=== PATIENT | female | born 1960 | race Caucasian/White ===

== ENCOUNTER 2017-04-12 19:11 | Emergency (ER) | payer OTHER ==
[~2017-04-12] VITALS: Ht 142.2 cm; Wt 81.6 kg
[2017-04-12] MEDS ORDERED: ATORVASTATIN CA40 MG ORAL (19:42)
[2017-04-12 19:45] VITALS: BP 126/74
[2017-04-12] MEDS ORDERED: BACITRACIN-P28.35 GM TP (20:20)
--- NOTE | 2017-04-12 20:20 | Emergency Room Report ---
History of Present Illness General Chief Complaint: Skin Rash/Abscess Source: Patient Present Illness HPI 56 yo female patient presents to ER complaining of skin lesion on right arm for the past few weeks. Patient reports bump on arm became irritated. States she put iodine and hydrogen peroxide on it today; states why skin is slightly brown/yellow at site of bump. Denies pain. Denies bleeding, open wound, pus draining from site. States she has appointment with her primary care in April but wanted to be seen sooner; states she does not have a [employer] manager. Denies fever, chest pain, SOB, rash. Allergies: Coded Allergies: PERFUME (Verified Allergy, Unknown, 04/12/17) Patient History Past Medical History: see triage record Reviewed Nursing Documentation: PMH: Agreed, PSxH: Agreed Nursing Documentation-PMH Past Medical History: No History, Except For Review of Systems All Other Systems: negative except mentioned in HPI Physical Exam Vital Signs Date Time Temp Pulse Resp B/P (MAP) Pulse Ox O2 Delivery O2 Flow Rate FiO2 04/12/17 19:36 97.9 73 18 124/76 95 Room Air 97.9 Sp02 EP Interpretation: reviewed, normal General Appearance: no apparent distress, alert, GCS 15, non-toxic Head: normocephalic, atraumatic Eyes: bilateral eye normal inspection, bilateral eye PERRL ENT: hearing grossly normal, normal pharynx, no angioedema, normal voice Neck: full range of motion, supple/symm/no masses Respiratory: chest non-tender, lungs clear, normal breath sounds, speaking full sentences Cardiovascular #1: regular rate, rhythm, no edema Cardiovascular #2: 2+ radial (R), 2+ radial (L) Musculoskeletal: back normal, digits/nails normal, gait/station normal, normal range of motion, non-tender Neurologic: alert, oriented x3, responsive, motor strength/tone normal, sensory intact, speech normal Skin: no rash, warm/dry, palpation normal, well hydrated, other - right forearm : <1cm papule, no erythema, no open wound, brown/yellow coloring of bump and surrounding skin, no surrounding celluliitis, no signs of infection, no drainage , no bleeding, non-TTP Medical Decision Making PA Attestation Dr. Bull is my supervising Physician whom patient management has been discussed with. Diagnostic Impression: Primary Impression: Rash and other nonspecific skin eruption ER Course Pt. presents to the ED c/o skin lesion. Ddx considered but are not limited to rash, cellulitis, abscess, mole, blister. Vital signs: are WNL, pt. is afebrile ORDERS: None required at this time, the diagnosis is clinical ED INTERVENTIONS: None required at this time. DISCHARGE: -Rx provided for Bacitracin. At this time pt. is stable for d/c to home. Will provide printed patient care instructions, and any necessary prescriptions. Care plan and follow up instructions have been discussed with the patient prior to discharge. Patient instructed to follow-up with primary care provider in 3 - 5 days and discuss further referral to [facility] manager. Patient questions asked and answered. ER precautions given. Patient instructed to return to ER immediately for any new or worsening of symptoms including but not limited to increasing SOB, persistent fever, intractable vomiting, calf pain. Last Vital Signs Date Time Temp Pulse Resp B/P (MAP) Pulse Ox O2 Delivery O2 Flow Rate FiO2 04/12/17 19:36 97.9 73 18 124/76 95 Room Air 97.9 Disposition: HOME, SELF-CARE Condition: Stable Scripts Bacitracin/Polymyxin B Sulfate (BACITRACIN-POLYMYXIN OINTMENT) 28.35 Gm Oint...g. 1 APPLIC TP BID for 7 Days, GM Prov: Zachary Jay 04/12/17 Patient Instructions: Matteo Additional Instructions: Followup with primary care provider in 3 -5 days. Take medications as directed. Patient questions asked and answered. ER precautions given, patient instructed to return to ER immediately for any new or worsening of symptoms. Zachary Jay Apr 12, 2017 20:20
[2017-04-12 20:40] VITALS: BP 125/73
[2017-04-12 20:43] VITALS: BP 125/73
== END 2017-04-12 20:43 | disposition home or self-care (01) ==
LOC: EMR 19:52
DX: R21 Rash and other nonspecific skin eruption (principal); Z91.048 Other nonmedicinal substance allergy status
CPT/HCPCS: 99283